=== PATIENT | male | born 1945 | race Native Hawaiian/Other Pacific Islander ===

== ENCOUNTER 2021-06-02 22:16 | Emergency (ER) | payer OTHER ==
[~2021-06-02] VITALS: Ht 167.6 cm; Wt 108.0 kg
[2021-06-02 22:50] LABS: PLATELET COUNT 91 K/uL (142-355)
[2021-06-02 22:57] LABS: POTASSIUM 3.9 mmol/L (3.6-5.2)
[2021-06-02 23:50] VITALS: BP 168/64
[2021-06-03] MEDS ORDERED: ALEN70TA19 PO ×2 (00:27→01:07)
[2021-06-03] MEDS ORDERED: AMLODIPINE BESYLATE PO ×2 (00:28→01:04)
[2021-06-03] MEDS ORDERED: ASPIRIN REGULA325 MG PO ×2 (00:29→01:05)
[2021-06-03] MEDS ORDERED: DONE5TAB PO ×2 (00:30→01:06)
[2021-06-03] MEDS ORDERED: FINA5TAB2 PO (00:31)
[2021-06-03] MEDS ORDERED: FLUOXETINE HYDR60 MG PO (00:33)
[2021-06-03] MEDS ORDERED: HYDRALAZINE10 MG PO (00:35)
[2021-06-03] MEDS ORDERED: NOVOLOG100 UNIT/M SC (00:37)
[2021-06-03] MEDS ORDERED: TRESIBA100 UNIT/M SC (00:38)
[2021-06-03] MEDS ORDERED: LISI5TAB10 PO (00:38)
[2021-06-03] MEDS ORDERED: MEMA5TAB PO (00:39)
[2021-06-03] MEDS ORDERED: METF500T PO (00:40)
[2021-06-03] MEDS ORDERED: OXYB5TAB64 PO (00:41)
[2021-06-03] MEDS ORDERED: QUETIAPINE25 MG PO (00:42)
[2021-06-03] MEDS ORDERED: SERT100T PO (00:43)
[2021-06-03] MEDS ORDERED: TAMS0.4C PO (00:44)
[2021-06-03] MEDS ORDERED: TRADJENTA5 M1 PO (00:46)
== END 2021-06-02 23:45 | disposition still patient (30) ==
LOC: ED 22:16
PROVIDERS: Emergency Medicine Emergency Medical Services
DX: F32.89 Other specified depressive episodes (principal); Z11.52 Encounter for screening for COVID-19; Z04.6 Encounter for general psychiatric examination, requested by authority
CPT/HCPCS: 36415; 80053; 85027; 87635; 93005; 99283; U0003